=== PATIENT | male | born 1980 | race Caucasian/White ===

== ENCOUNTER 2016-08-31 16:31 | Emergency (ER) ==
[2016-08-31] MEDS ORDERED: DECADRON IM ONE (18:10)
[2016-08-31] MEDS ORDERED: BENADRYL IM ONE (18:10)
[2016-08-31] MEDS ORDERED: PEPCID PO ONE (18:10)
--- NOTE | 2016-08-31 18:16 | PROVIDER DOCUMENTATION ---
HPI-Rash/Wound/ReCheck - General Chief Complaint: Rash Stated Complaint: ALLERGIC REACTION Time Seen by Provider: 08/31/16 18:07 Source: patient Allergies/Adverse Reactions: Allergies Allergy/AdvReac Type Severity Reaction Status Date / Time No Known Allergies Allergy Verified 10/24/14 06:42 Home Medications: Home Medication List Medication Instructions Recorded Confirmed Last Taken Type Cetirizine/Pse 12Hr [Zyrtec-D 12Hr] 1 each PO DAILY 10/24/14 10/24/14 10/23/14 History Calamine/Zinc Oxide [Calamine 180 ml TP BID PRN PRN #1 tube 08/31/16 Unknown Rx Lotion] Famotidine [Pepcid] 20 mg PO DAILY #20 tablet 08/31/16 Unknown Rx Hydroxyzine [Atarax] 50 mg PO TID PRN #10 tablet 08/31/16 Unknown Rx Methylprednisolone [Medrol Dosepak] 4 mg PO DIRECTED #1 package 08/31/16 Unknown Rx - History of Present Illness-Dermatology Nature of Presenting Problem: This pt presents today c complaints of generalized erythematous rash X 1 week. He denies any new exposures at this time. He has been using benadryl and zyrtec but his symptoms persist. No respiratory distress. No pharyngeal or lingual swelling. No other issues or complaints. Location: reports: generalized Quality: reports: itchy Severity: reports: mild Onset/Duration: reports: 1 week ago Timing: reports: still present Context/Associated Symptoms: reports: rash Similar Symptoms Previously?: No Recently seen or treated by another doctor?: No Review of Systems - Adult - REVIEW OF SYSTEMS - ADULT Constitutional: reports: no symptoms reported. denies: chills, fever Eyes: reports: no symptoms reported. denies: discharge, dry eyes Ears, Nose, Mouth & Throat: reports: no symptoms reported. denies: ear discharge, ear pain Cardiovascular: reports: no symptoms reported. denies: chest pain, edema Respiratory: reports: no symptoms reported. denies: chronic cough, cough Gastrointestinal: reports: no symptoms reported. denies: abdominal pain, hematemesis Genitourinary: reports: no symptoms reported. denies: dysuria, discharge Musculoskeletal: reports: no symptoms reported. denies: bone pain, back pain Integumentary: reports: itching, rash. denies: hives, hair loss Neurological: reports: no symptoms reported. denies: ataxia, dizziness/vertigo Psychiatric: reports: no symptoms reported. denies: anxiety, anti-depressant use Endocrine: reports: no symptoms reported Hematologic/Lymphatic: reports: no symptoms reported Allergic/Immunologic: reports: no symptoms reported All Other Systems: Reviewed and Negative Past History - Adult - PAST MEDICAL HISTORY-ADULT Review of Records: reports: Old Records Reviewed, Nursing Assessment Review, Medications Reviewed, Social history reviewed & non-contributory. Major Childhood Illnesses: reports: denies history Cardiovascular: reports: denies history Respiratory: reports: denies history Gastrointestinal: reports: denies history Obstetrical/Gynecological: reports: denies history Genitourinary: reports: denies history Musculoskeletal: reports: denies history Neurological: reports: denies history Psychiatric: reports: denies history Endocrine/Immune: reports: denies history Other Conditions: reports: denies history - PRIOR SURGERIES/PROCEDURES Surgical/Procedure History: reports: other (hemrrhoid Sx) - IMMUNIZATION STATUS Childhood Immunizations: UTD - FAMILY HISTORY Family History: reviewed, not pertinent Physical Exam-General - PHYSICAL EXAM-ADULT Initial Vital Signs Reviewed: Yes - CONSTITUTIONAL General Appearance: appears well, alert, no apparent distress - EYES Eyes: PERRL/EOMI, pink conjunctivae - HEAD, EARS, NOSE, MOUTH & THROAT HENMT: normocephalic/atraumatic, moist mucous membranes, normal ENT inspection - NECK Neck: non-tender, full range of motion, supple, normal inspection - RESPIRATORY Respiratory: chest non-tender, lungs clear - CARDIOVASCULAR Cardiovascular: normal peripheral pulses, regular rate, rhythm - GASTROINTESTINAL (ABDOMEN) Abdominal Exam: normal bowel sounds, non tender, soft - MUSCULOSKELETAL Back Exam: normal inspection Extremity: normal range of motion, non-tender, normal gait, normal inspection - SKIN Integumentary: normal turgor, warm/dry, rash (erythematous, generalized; appears to be contact dermatitis) - NEUROLOGIC Neurologic: grossly normal, no motor/sensory deficits Progress - PLAN OF CARE/RESULTS Progress/Plan/Lab Results: Orders Category Date Time Status Dexamethasone [Decadron] Med 08/31/16 18:10 Discontinued 10 mg IM NOW ONE Diphenhydramine [Benadryl] Med 08/31/16 18:10 Discontinued 50 mg IM NOW ONE Famotidine [Pepcid] Med 08/31/16 18:10 Discontinued 20 mg PO NOW ONE Vital Signs Temp Pulse Resp BP Pulse Ox 08/31/16 16:49 98 F 87 18 145/85 99 No Known Allergies Allergy (Verified 10/24/14 06:42) Cetirizine/Pse 12Hr [Zyrtec-D 12Hr] 1 each PO DAILY 10/24/14 Departure - Departure Time of Disposition Order: 18:13 DIAGNOSIS: Rash and nonspecific skin eruption Disposition: HOME 01 Certified Medical Emergency: Urgent Condition: Good Additional Instructions: Take medication as prescribed. Follow up with a gym teacher. ED Follow Up Instructions: You have been treated by a care provider in the Emergency Department. These instructions are being provided to you so you can have an understanding of how to care for yourself upon discharge. Upon discharge from the Emergency Department, you are responsible for making arrangements for follow-up care by a physician of your choice. Take all prescribed medications as directed. Return to the Emergency Department immediately for any new or worsening symptoms. You may call the Physician Referral phone number at [phone] to obtain a list of Physicians who are taking new patients. Prescriptions: Calamine/Zinc Oxide [Calamine Lotion] 180 ml TP BID PRN PRN #1 tube PRN Reason: Itching Hydroxyzine [Atarax] 50 mg PO TID PRN #10 tablet PRN Reason: Itching Methylprednisolone [Medrol Dosepak] 4 mg PO DIRECTED #1 package Famotidine [Pepcid] 20 mg PO DAILY #20 tablet Referrals: None,PCP [Primary Care Provider] - Love Mcclure MD [STAFF PHYSICIAN] - Attestation - Physician/ AIDEN Attestation Patient care was provided by Advanced Practice Provider:: Yes Advanced Practice Provider:: Eyad Madden Advanced Practice Provider documentation review:: The Mid-level provider documentation, treatment plan and medical decision making was reviewed by the physician who agrees with all treatment and medical decision making by the MLP.
[2016-08-31 19:10] VITALS: BP 136/093
== END 2016-08-31 19:09 | disposition home or self-care (01) ==
LOC: P.ED 16:31
DX: R21 Rash and other nonspecific skin eruption (principal); L29.9 Pruritus, unspecified
CPT/HCPCS: J1200